=== PATIENT | male | born 1985 | race Caucasian/White ===

== ENCOUNTER 2025-07-27 14:00 | Emergency (ER) | payer OTHER ==
[2025-07-27] MEDS ORDERED: Ketorolac Tromethamine 30 MG (1 mL) VIAL ONE (14:21)
[2025-07-27] MEDS ORDERED: predniSONE 20 MG TAB ONE (14:21)
[2025-07-27] MEDS ORDERED: Ondansetron PF 4 MG/2 ML Vial ONE (14:38)
[2025-07-27 14:47] LABS: #Basophils 0.03 10x3/uL (0.0-0.2); #Eosinophils 0.04 10x3/uL (0.0-0.5); #Monocytes 0.44 10x3/uL (0.0-1.1); #Neutrophils 7.15 10x3/uL (1.5-8.4); %Basophils 0.3 % (0.0-2.0); %Eosinophils 0.4 % (0.0-6.0); %Lymphocytes 19.9 % (18.0-47.0); %Monocytes 4.6 % (0.0-10.0); %Neutrophils 74.5 % (40.0-75.0); Hematocrit 41.4 % (38.8-50.0); Hemoglobin 14.3 g/dL (13.5-17.5); Mean Corpuscular Hemoglobin 28.9 pg (27.0-33.0); Mean Corpuscular Volume 83.6 fL (81.2-95.1); Platelet Count 196 10x3/uL (150-450); Red Blood Cell (RBC) Count 4.95 10x6/uL (4.32-5.72); White Blood Cell (WBC) Count 9.60 10x3/uL (3.5-10.5)
[2025-07-27 15:52] LABS: Troponin I Less than 0.010 ng/mL (< 0.028)
[2025-07-27 15:55] LABS: ALT (SGPT) 41 U/L (Less than 45); AST (SGOT) 35 U/L (11-34); Albumin 4.4 g/dL (3.1-4.5); Alkaline Phosphatase 66 U/L (40-110); Anion Gap 18 mmol/L (10-20); BUN (Urea Nitrogen) 23 mg/dL (8.9-20.6); Bilirubin, Total 0.4 mg/dL (0.3-1.2); Calc. Creatinine Clearance 0 mL/min (70-130); Calcium 9.3 mg/dL (7.8-10.44); Carbon Dioxide 20 mmol/L (22-29); Chloride 105 mmol/L (98-107); Globulin 2.8 g/dL (2.4-3.5); Glucose 99 mg/dL (70-105); Magnesium 1.8 mg/dL (1.6-2.6); Potassium 3.5 mmol/L (3.5-5.1); Sodium 139 mmol/L (136-145)
== END 2025-07-27 16:18 | disposition home or self-care (01) ==
LOC: CSHERS 14:00
DX: M54.41 Lumbago with sciatica, right side (principal); R55 Syncope and collapse
CPT/HCPCS: 36415; 72131; 80053; 83735; 84484; 85025; 93005; 96374; 96375; J1885; J7512